=== PATIENT | male | born 1945 | race Hispanic/Latino ===

== ENCOUNTER 2021-11-21 14:56 | Emergency (ER) | payer MEDICARE ==
[2021-11-21] MEDS ORDERED: GLUCAGON (HUMAN RECOMBINANT) 1 MG/ML INJ IV ONE (15:22)
[2021-11-21] MEDS ORDERED: LORazepam 2 MG/ML VIAL IV ONE (15:22)
[2021-11-21 15:23] VITALS: BP 131/70
[2021-11-21] MEDS ORDERED: NITROGLYCERIN 0.4 MG TAB SUBL SL ONE (15:23)
[2021-11-21] MEDS ORDERED: SODIUM CHLORIDE 0.9% 1000 ML 1,000 ML IV ONE (15:23)
--- NOTE | 2021-11-21 15:29 | Emergency Department Report ---
ED General Adult HPI - General Chief complaint: Sore Throat Stated complaint: OBJECT STUCK IN THROAT Time Seen by Provider: 11/21/21 15:20 Source: patient, EMS Mode of arrival: Stretcher Limitations: Language Barrier - History of Present Illness Initial comments: Patient is 76 years old [place] male with no significant past medical history. Patient brought to the emergency room via EMS from home stating that a food bolus is stuck into his throat approximately 1 hour ago. Patient is unable to specify what kind of food. Patient stated that this is happened before and he was taken to the hospital and it was removed. Patient denied any other sym ptoms. Severity scale (0 -10): 0 - Related Data Previous Rx's Medication Instructions Recorded Last Taken Type Famotidine [Pepcid] 20 mg PO BID #30 tablet 01/29/19 Unknown Rx Mag Hydrox/Aluminum Hyd/Simeth 20 ml PO QID PRN #1 bottle 01/29/19 Unknown Rx [Maalox Advanced Suspension] Potassium Chloride [K-Dur] 20 meq PO BID #6 tab 01/29/19 Unknown Rx Allergies Allergy/AdvReac Type Severity Reaction Status Date / Time No Known Allergies Allergy Verified 11/21/21 16:02 ED Review of Systems ROS: Stated complaint: OBJECT STUCK IN THROAT Other details as noted in HPI Comment: All other systems reviewed and negative Constitutional: denies: chills, fever Respiratory: denies: cough, shortness of breath, SOB with exertion Cardiovascular: denies: chest pain, palpitations Gastrointestinal: denies: abdominal pain, nausea, vomiting Musculoskeletal: denies: back pain Neurological: denies: headache, weakness, numbness, paresthesias, confusion, abnormal gait ED Past Medical Hx - Social History Smoking Status: Unknown if ever smoked - Medications Home Medications: Home Medications Medication Instructions Recorded Confirmed Last Taken Type Famotidine [Pepcid] 20 mg PO BID #30 tablet 01/29/19 Unknown Rx Mag Hydrox/Aluminum Hyd/Simeth 20 ml PO QID PRN #1 bottle 01/29/19 Unknown Rx [Maalox Advanced Suspension] Potassium Chloride [K-Dur] 20 meq PO BID #6 tab 01/29/19 Unknown Rx ED Physical Exam - General Limitations: Language Barrier General appearance: alert, in no apparent distress - Head Head exam: Present: atraumatic, normocephalic, normal inspection - Eye Eye exam: Present: normal appearance - ENT ENT exam: Present: normal exam, normal orophraynx, mucous membranes moist - Neck Neck exam: Present: normal inspection, full ROM. Absent: tenderness, meningismus - Respiratory Respiratory exam: Present: normal lung sounds bilaterally - Cardiovascular Cardiovascular Exam: Present: regular rate, normal rhythm, normal heart sounds - GI/Abdominal GI/Abdominal exam: Present: soft, normal bowel sounds. Absent: distended, tenderness, guarding, rebound, rigid, organomegaly, mass, bruit, pulsatile mass, hernia - Extremities Exam Extremities exam: Present: normal inspection, full ROM, normal capillary refill. Absent: tenderness - Back Exam Back exam: Present: normal inspection, full ROM. Absent: CVA tenderness (R), CVA tenderness (L) - Neurological Exam Neurological exam: Present: alert, oriented X3, CN II-XII intact. Absent: motor sensory deficit - Psychiatric Psychiatric exam: Present: normal mood - Skin Skin exam: Present: warm, intact, normal color ED Course Vital Signs 11/21/21 11/21/21 15:14 15:58 Temperature 98.5 F Pulse Rate 88 Respiratory 16 16 Rate Blood Pressure 131/70 [Right] O2 Sat by Pulse 96 99 Oximetry ED Medical Decision Making - Lab Data Result diagrams: 11/21/21 16:11 11/21/21 16:11 - Radiology Data Radiology results: report reviewed - Medical Decision Making Patient is 76 years old [place] male with no significant past medical history. Patient brought to the emergency room via EMS from home stating that a food rody misha is stuck into his throat approximately 1 hour ago. Patient is unable to specify what kind of food. Patient stated that this is happened before and he was taken to the hospital and it was removed. Patient denied any other symptoms. Patient now is able to drink with no difficulty. Patient stated that he is feeling better. Advised patient to follow-up with his primary care physician in the next 2 to 3 days and to return to the ER if he develop any new symptoms. Critical care attestation.: If time is entered above; I have spent that time in minutes in the direct care of this critically ill patient, excluding procedure time. ED Disposition Clinical Impression: Dysphagia Disposition: HOME / SELF CARE / HOMELESS Is pt being admited?: No Condition: Stable Instructions: Dysphagia, Dysphagia Eating Plan, Pureed Referrals: PRIMARY CARE, [Primary Care Provider] - 3-5 Days
[2021-11-21 16:34] LABS: Basophils % (Auto) 0.8 % (0.0-1.8); Eosinophils # (Auto) 0.2 K/mm3 (0.0-0.4); Eosinophils % (Auto) 3.2 % (0.0-4.3); Hemoglobin 13.2 gm/dl (11.8-15.2); Lymphocytes # (Auto) 0.6 K/mm3 (1.2-5.4); Lymphocytes % (Auto) 9.7 % (13.4-35.0); Mean Corpuscular HGB Conc 32 % (32-34); Mean Corpuscular Volume 92 fl (84-94); Monocytes # (Auto) 0.5 K/mm3 (0.0-0.8); Monocytes % (Auto) 8.8 % (0.0-7.3); Platelet Count 186 K/mm3 (140-440); Red Blood Count 4.45 M/mm3 (3.65-5.03); Red Cell Distribution Width 15.3 % (13.2-15.2)
--- NOTE | 2021-11-21 16:50 | XRay Report ---
SOFT TISSUES OF THE NECK 2 VIEWS 155 INDICATION: Food bolus obstruction COMPARISON: None available. FINDINGS: No soft tissue swelling is seen. No obvious foreign body is noted. Mild cervical degenerati ve changes are seen. CHEST 2 VIEWS INDICATION / CLINICAL INFORMATION: Food bolus obstruction STUDY TIME: 1553 COMPARISON: None available. FINDINGS: SUPPORT DEVICES: None. 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 Surgical changes are seen in the upper to mid mediastinum. Heart size appears within normal limits. On PA view and air-fluid level is seen i n the midline in at the sternal notch level which probably is in the esophagus and is not well seen o n the lateral projection. This suggests fluid in the esophagus which could be seen with obstruction t raheel also could be seen with reflux and is nonspecific. No foreign bodies are noted. LUNGS / PLEURA: Surgical changes are seen in the right upper lobe. No acute infiltrates are seen. No pleural effusions are noted. No pneumothorax. ADDITIONAL FINDINGS: No significant additional findings. IMPRESSION: No foreign bodies are obvious. There likely is fluid in the upper esophagus as above. CT chest may be useful. Signer Name: Mahendra Oliver MD Signed: 11/21/2021 4:45 PM Workstation Name: [id number]
[2021-11-21 16:53] LABS: Blood Urea Nitrogen 7 mg/dL (9-20); Calcium 8.9 mg/dL (8.4-10.2); Hemolysis Index 22
[2021-11-21 16:56] LABS: BUN/Creatinine Ratio 12
== END 2021-11-21 18:19 | disposition home or self-care (01) ==
LOC: ED 14:56
DX: R13.10 Dysphagia, unspecified (principal); Z79.899 Other long term (current) drug therapy
CPT/HCPCS: 36415; 70360; 71046; 80048; 85025; 99284